=== PATIENT | male | born 1935 | race Caucasian/White ===

== ENCOUNTER → 2018-01-05 14:54 | Outpatient (CLI) | payer MEDICARE, OTHER, SELFPAY ==
--- NOTE | 2018-01-05 15:15 | RAD_ITS ---
STUDY: X-RAY CHEST REASON FOR EXAM: Male, 82 years old. History of pneumonia. TECHNIQUE: PA and lateral views of the chest. COMPARISON: Comparison is made with prior examination dated March 18, 2016. FINDINGS: Hyperinflation. Stable pleural parenchymal changes at the left lung base suggestive of a chronic scarring at the left lung base with blunting of the left costophrenic angle. Mild residual increased markings in the right upper lobe suggestive of possible infiltrate. Further follow-up is recommended. Bilateral dual chamber pacemakers are seen. Normal mediastinum and chato. Normal visualized pulmonary arteries. There is atherosclerotic calcification of the aortic arch with tortuosity. There are diffuse degenerative changes of the visualized thoracic spine. Normal visualized ribs, clavicles, and shoulders. There is no demonstrated abnormality of the visualized soft tissue structures of the upper abdomen. RAD/Chest PA and Lateral IMPRESSION: Focal area of increased markings in the right middle lobe. Follow-up is recommended. Chronic pleural parenchymal changes at the left lung base. Electronically Signed: Edd Sloan MD at 15:31 EDT Tel [phone], Service support ,
== END ==
PROVIDERS: Family Provider Family Medicine; PCP Family Medicine; Visit Provider Internal Medicine Pulmonary Disease
DX: J18.9 Pneumonia, unspecified organism (principal); J47.9 Bronchiectasis, uncomplicated
CPT/HCPCS: 71046; 87070; 87077; 87186; 87205

== ENCOUNTER → 2018-02-02 16:01 | Outpatient (CLI) | payer MEDICARE, OTHER, SELFPAY ==
--- NOTE | 2018-02-02 16:22 | RAD_ITS ---
STUDY: X-RAY CHEST REASON FOR EXAM: Male, 82 years old. Shortness of breath. History of COPD and bronchitis. TECHNIQUE: PA and lateral views of the chest on 3 films. COMPARISON: PA and lateral chest x-ray on 4 films January 05, 2018. FINDINGS: Again seen are bilateral dual-chamber subclavian cardiac pacemakers, their leads both terminating in the right atrium and ventricle. There is hyperinflation of the lungs consistent with chronic obstructive lung disease (COPD). There is increasing ill-defined subsegmental density in the right midlung on the frontal view, likely in the posterior right upper lobe near the pleural fissure on the lateral projection. Minor stranding in the posterior left base is unchanged. There is no demonstrated pleural abnormality. Normal size heart. Normal mediastinum and chato. Normal visualized pulmonary arteries. There is stable atherosclerotic calcification of the aortic arch. There are stable diffuse degenerative changes of the visualized thoracic spine. Normal visualized ribs, clavicles, and shoulders. There is no demonstrated abnormality of the visualized soft tissue structures of the upper abdomen. RAD/Chest PA and Lateral IMPRESSION: 1. Hyperexpanded, consistent with COPD. There is minor chronic stranding/scarring in the posterior left base. 2. Increased size of ill-defined subsegmental density projecting in the right midlung on the frontal view. Differential includes inflammatory change, subsegmental atelectasis, or neoplastic change. This was not apparent on CT chest July 29, 2015, so repeat CT for further characterization may be appropriate. 3. Bilateral dual chamber cardiac pacemakers again noted. Electronically Signed: Umair Ortiz MD at 19:31 EDT , Service support ,
== END ==
PROVIDERS: Family Provider Family Medicine; PCP Family Medicine; Visit Provider Internal Medicine Pulmonary Disease
DX: J47.9 Bronchiectasis, uncomplicated (principal); J44.9 Chronic obstructive pulmonary disease, unspecified
CPT/HCPCS: 71046; 87070; 87077; 87186; 87205

== ENCOUNTER → 2018-04-10 15:25 | Outpatient (CLI) | payer MEDICARE, OTHER, SELFPAY ==
--- NOTE | 2018-04-10 15:29 | RAD_ITS ---
STUDY: X-RAY CHEST REASON FOR EXAM: Male, 82 years old. COPD, atelectasis. TECHNIQUE: PA and lateral views of the chest. COMPARISON: February 02, 2018 FINDINGS: There is interval resolution of the patchy opacity within the right upper lung. There are persistent bibasilar streaky opacities. There are 2 dual-lead pacer device is in place. Normal size heart. Normal mediastinum and chato. Normal visualized pulmonary arteries. Normal visualized aortic arch and descending thoracic aorta. There are diffuse degenerative changes of the visualized thoracic spine. Normal visualized ribs, clavicles, and shoulders. There is no demonstrated abnormality of the visualized soft tissue structures of the upper abdomen. RAD/Chest PA and Lateral IMPRESSION: Persistent bibasilar atelectasis and/or scarring. Interval resolution of right upper lobe opacity. Electronically Signed: Ioana Moon MD at 16:09 EDT Tel , Service support ,
== END ==
PROVIDERS: Family Provider Family Medicine; PCP Family Medicine; Referring Provider Internal Medicine Pulmonary Disease; Visit Provider Internal Medicine Pulmonary Disease
DX: J44.9 Chronic obstructive pulmonary disease, unspecified (principal); J98.11 Atelectasis
CPT/HCPCS: 71046